=== PATIENT | female | born 1935 | race Caucasian/White ===

== ENCOUNTER 2023-10-15 18:28 | Emergency (ER) | payer MEDICARE, OTHER, SELFPAY ==
[2023-10-15 18:29] VITALS: BP 159/68
--- NOTE | 2023-10-15 21:10 | ED.GENMED ---
History of Present Illness
<Yulia Garcia PA-C - Last Filed: 10/16/23 00:23>
General
Chief Complaint: Musculo-Skeletal Complaint
Source: patient and family (patients daughter)
Exam Limitations: none
Time Seen by Provider: 10/15/23 20:34
Nursing documentation reviewed up to this point in time: agreed with
Travel History
Have you had any contact with someone who has COVID-19?: No
Do you have any symptoms of coronavirus? Fever > 100 degrees, chills, cough, shortness of breath, sore throat, loss of taste or smell, muscle aches, or headache?: No
History of Present Illness
History of Present Illness:
Patient is an 88-year-old female with history of hypertension, hyperlipidemia, GERD presenting for evaluation after sustaining a fall earlier today around 4 PM. She states that she was walking to her mailbox in her living community and seemed to
slip and fell backwards landing on her bottom and then striking the back of her head on the cement. The fall was unwitnessed but patient reports she did not lose consciousness. She was able to crawl back home. She denies any nausea, vomiting,
headache, visual changes, confusion. Her main complaint at this moment is pain in her right wrist. She also endorses mild pain in her neck she is not sure if she landed on her wrist when she fell.
Patient takes a baby aspirin every day. No other anticoagulation
Phy Exam
<Yulia Garcia PA-C - Last Filed: 10/16/23 00:23>
Physical Exam
Physical Exam:
General: Well appearing and non-toxic, vital signs reviewed - patient afebrile
HEENT: Small contusion posterior scalp with no lacerations or active bleeding, pupils equal round reactive light bilaterally, extraocular muscles intact, no tenderness around orbits, no tenderness to nasal bridge, protecting airway, no blood in
posterior pharynx
Neck: appears supple, mild C-spine tenderness, no midline spinal tenderness
CV: No evidence of cyanosis
Resp: No evidence of respiratory distress, lungs clear, no accessory muscle use
Abd: Soft and nontender, non-distended
Extremities: Tenderness to right wrist significant edema and bruising; right upper extremity neurovascularly intact, no tenderness over anatomical snuffbox, limited range of motion due to pain
Neuro: alert and oriented, speech normal, no focal motor deficits, no focal neurologic deficits
Psych: Normal affect
Skin: Intact, no rashes
Course
<Yulia Garcia PA-C - Last Filed: 10/16/23 00:23>
Orders/Labs/Results
Orders:
Orders
10/15/23 21:21
Acetaminophen [Tylenol] 650 mg PO NOW STA
Wrist, Right 3 Views [CR Wrist - Right Min 3 Views] Urgent
Comment:
Reason For Exam: fall, pain/swelling right wrist
10/15/23 21:23
CT Cervical Spine W/o Iv Contr Urgent
Comment:
Reason For Exam: fall
CT Head W/o Iv Contrast Urgent
Comment:
Reason For Exam: fall, impact to posterior scalp
Cardiac Monitoring- Treatment ONCE
10/15/23 23:34
Splints/Slings/Crut- Treatment ONCE
Location: Right
Type of Splint: Volar
10/15/23 23:40
Sling Right-Treatment ONCE
Vital Signs
Initial and Last Documented VS:
Initial Vital Signs
Temp Pulse Resp BP Pulse Ox
97.8 F 68 18 159/68 100
10/15/23 18:29 10/15/23 18:29 10/15/23 18:29 10/15/23 18:29 10/15/23 18:29
Last Documented Vital Signs
Temp Pulse Resp BP Pulse Ox
97.8 F 68 18 159/68 100
10/15/23 18:29 10/15/23 18:29 10/15/23 18:29 10/15/23 18:29 10/15/23 18:29
<Stanley Nieto DO - Last Filed: 10/15/23 23:42>
Orders/Labs/Results
Orders:
Orders
10/15/23 21:21
Acetaminophen [Tylenol] 650 mg PO NOW STA
Wrist, Right 3 Views [CR Wrist - Right Min 3 Views] Urgent
Comment:
Reason For Exam: fall, pain/swelling right wrist
10/15/23 21:23
CT Cervical Spine W/o Iv Contr Urgent
Comment:
Reason For Exam: fall
CT Head W/o Iv Contrast Urgent
Comment:
Reason For Exam: fall, impact to posterior scalp
Cardiac Monitoring- Treatment ONCE
10/15/23 23:34
Splints/Slings/Crut- Treatment ONCE
Location: Right
Type of Splint: Volar
10/15/23 23:40
Sling Right-Treatment ONCE
Vital Signs
Initial and Last Documented VS:
Initial Vital Signs
Temp Pulse Resp BP Pulse Ox
97.8 F 68 18 159/68 100
10/15/23 18:29 10/15/23 18:29 10/15/23 18:29 10/15/23 18:29 10/15/23 18:29
Last Documented Vital Signs
Temp Pulse Resp BP Pulse Ox
97.8 F 68 18 159/68 100
10/15/23 18:29 10/15/23 18:29 10/15/23 18:29 10/15/23 18:29 10/15/23 18:29
<Yulia Garcia PA-C - Last Filed: 10/16/23 00:23>
MDM/Problems Addressed
Differential Diagnosis Includes:
Scalp hematoma, head contusion, concussion, history of hemorrhage, wrist fracture
MDM/Problems Addressed:
Patient is an 88-year-old female presenting for evaluation after sustaining a fall. She landed on her buttock striking the back of her head on cement. Fall was unwitnessed, but no reported LOC. Patient with mild neck pain and significant pain and
swelling in right wrist. No vomiting, visual changes, back pain since fall. She takes baby aspirin daily otherwise no anticoagulation. She is hemodynamically stable upon arrival. Physical exam as documented above. There is a degree of hematoma
to the posterior scalp but no lacerations. She has mild cervical spine tenderness. No focal neurologic deficits on exam. She does have significant bruising and swelling of right wrist with limited range of motion due to pain. Based on mechanism
of unwitnessed fall�will get CT scan of head and cervical spine. Will x-ray right wrist. Will give Tylenol for pain. Will reassess
Patient with improvement in pain after Tylenol.
X-ray of right wrist shows acute impacted transverse fracture of distal right radius with mild dorsal displacement. Head CT and C-spine CT showed no evidence of intracranial bleeding or acute fracture-only degenerative changes noted.
She has remained stable in the emergency department. Will place patient in volar splint/sling and discharge. She will follow-up with orthopedics outpatient�will call in morning for appointment. Return precautions discussed. Supportive care with
Tylenol, ice, elevation, instruction leave sling in place until seen by orthopedics. Patient and patient's daughter comfortable this plan. All questions answered.
Chronic conditions affecting care:
HTN, HLD
Acute Exacerbation and/or Progression of Chronic Illness:
Distal radius fracture, head contusion
<Yulia Garcia PA-C - Last Filed: 10/16/23 00:23>
*Radiology
Radiology exam reviewed: preliminary read by ED provider and radiology read reviewed
*Pulse Oximetry
Patient hypoxic: no
*Electric Sign Wirer Interpretation
Rate: Electric Sign Wirer- N/A
*Critical Care Note
Total Time (30-74mins, 75-104mins- exclusive of procedures): Not Applicable
ED Attending Note
<Yulia Garcia PA-C - Last Filed: 10/16/23 00:23>
-
Portions of this chart may have been created with voice recognition software.� Occasional wrong word or��sound alike� substitutions may have occurred due to the inherent limitations of voice recognition software.
<Stanley Nieto DO - Last Filed: 10/15/23 23:42>
ED Attending Note
Patient seen and examined by attending physician: Yes
I performed the substantive portion of visit, reviewed & personally made and approve the management plan that is documented in note by myself or KALPESH.: Yes
ED Attending Note:
I agree with Lucrecia's note
Patient suffered a fall earlier today. She did strike the back of her head but no loss of consciousness. She is complaining of right wrist pain.
Vital signs acceptable
Small contusion posterior scalp
Neuro: Nonfocal
Right extremity: Swelling of the right wrist with some ecchymosis. Neurovascularly intact
CT head and neck showed chronic changes but nothing acute
Right wrist x-ray shows distal radius fracture. Immobilized with a splint, Ortho follow-up
Discharge Plan
Departure
Patient Disposition: Home (Routine Discharge)
Date of Disposition: 10/15/23
Time of Disposition: 23:43
Patient with high blood pressure during this ER visit?: Yes
Condition: Good
Discharge Problem:
Distal radius fracture, right, Contusion of head
Instructions: Radius Fracture (DC), How to Use a Shoulder Sling, Splint Care, Minor Head Injury, Adult ED, BLOOD PRESSURE
Referrals:
Sherie Jj DO [Family Provider] -
Celestino Ernst MD [Active] - Next open appointment
Activity Restrictions/Additional Instructions:
-Return to the emergency department with any severe headache, persistent dizziness, altered mental status, intractable vomiting, chest pain, shortness of breath, severe pain, worsening of current symptoms, or any other concerns.
-Keep your splint on until you are seen by orthopedics. Please return to the emergency department for any numbness/ tingling of right fingers, or any severe pain in right arm.
-Follow-up with orthopedics tomorrow for further evaluation/treatment of right wrist fracture.
-You can take Tylenol as needed for pain. Try to keep arm elevated and apply ice frequently.
Interventions
Interventions:
*Risk Screen - Suicide Last Done: 10/15/23 21:35
*General Assessment Last Done: 10/15/23 21:33
*Neglect/Abuse Screening Last Done: 10/15/23 21:35
ED- Fall Risk Assessment Last Done: 10/15/23 21:36
*ED COVID-19 Vaccine History Last Done: 10/15/23 21:33
*Nursing Disposition Last Done: 10/16/23 00:18
ED-Musculoskeletal Assessment Last Done: 10/15/23 21:35
[2023-10-15] MEDS: TYLENOL 650 MG PO (21:30)
== END 2023-10-16 00:19 | disposition home or self-care (01) ==
LOC: EMR 18:28
PROVIDERS: EMERGENCY PHYSICIAN Emergency Medicine; FAMILY PHYSICIAN Family Medicine
DX: S52.591A Other fractures of lower end of right radius, initial encounter for closed fracture (principal); S00.03XA Contusion of scalp, initial encounter; W01.0XXD Fall on same level from slipping, tripping and stumbling without subsequent striking against object, subsequent encounter; I10 Essential (primary) hypertension; E78.5 Hyperlipidemia, unspecified; K21.9 Gastro-esophageal reflux disease without esophagitis
CPT/HCPCS: 99284; 29125; 70450; 72125; 73110

== ENCOUNTER → 2023-10-24 13:06 | Outpatient (REF) | payer MEDICARE, OTHER, SELFPAY ==
[2023-10-24 16:03] LABS: ALT (SGPT) 29 U/L (0-35); AST (SGOT) 50 U/L (14-36); Alkaline Phosphatase 81 U/L (38-126); Blood Urea Nitrogen 12 mg/dl (7-17); Calcium 9.5 mg/dl (8.4-10.2); Carbon Dioxide 28 mmol/L (22-30); Chloride 94 mmol/L (98-107); Glucose 93 mg/dl (70-99); Potassium 4.7 mmol/L (3.5-5.1); Sodium 131 mmol/L (135-145); Total Bilirubin 0.5 mg/dl (0.2-1.3); eGFR > 60.00
[2023-10-24 16:19] LABS: Vitamin D, 25-OH*** 46.8 ng/mL (30-80)
== END ==
LOC: HWLAB 13:06
PROVIDERS: ATTENDING PHYSICIAN Internal Medicine; FAMILY PHYSICIAN Family Medicine
DX: M81.0 Age-related osteoporosis without current pathological fracture (principal)
CPT/HCPCS: 36415; 80053; 82306

== ENCOUNTER → 2023-12-02 09:59 | Outpatient (REF) | payer MEDICARE, OTHER, SELFPAY ==
[2023-12-02 12:21] LABS: ALT (SGPT) 20 U/L (0-35); AST (SGOT) 34 U/L (14-36); Albumin 4.1 g/dl (3.5-5.0); Alkaline Phosphatase 96 U/L (38-126); Direct Bilirubin 0.1 mg/dl (0.0-0.4); Total Bilirubin 0.4 mg/dl (0.2-1.3)
== END ==
LOC: HWLAB 09:59
PROVIDERS: ATTENDING PHYSICIAN Internal Medicine Gastroenterology; FAMILY PHYSICIAN Family Medicine
DX: R74.01 Elevation of levels of liver transaminase levels (principal)
CPT/HCPCS: 36415; 80076

== ENCOUNTER → 2024-01-19 09:10 | Outpatient (REF) | payer MEDICARE, OTHER, SELFPAY ==
[2024-01-19 13:52] LABS: ALT (SGPT) 29 U/L (0-35); AST (SGOT) 44 U/L (14-36); Albumin 3.9 g/dl (3.5-5.0); Alkaline Phosphatase 76 U/L (38-126); Blood Urea Nitrogen 15 mg/dl (7-17); Calcium 9.2 mg/dl (8.4-10.2); Carbon Dioxide 28 mmol/L (22-30); Chloride 98 mmol/L (98-107); Glucose 82 mg/dl (70-99); HDL Cholesterol 59 mg/dl; LDL Cholesterol, Calculated 88 mg/dl; Potassium 4.4 mmol/L (3.5-5.1); Sodium 131 mmol/L (135-145); Total Bilirubin 0.4 mg/dl (0.2-1.3); Total Cholesterol 165 mg/dl (50-199); Total Protein 6.9 g/dl (6.3-8.2); Triglyceride 94 mg/dl (10-149); Very Low Density Lipoprotein 18 mg/dl (0-30); eGFR > 60.00
== END ==
LOC: HWLAB 09:10
PROVIDERS: ATTENDING PHYSICIAN Internal Medicine Gastroenterology; FAMILY PHYSICIAN Family Medicine
DX: E78.00 Pure hypercholesterolemia, unspecified (principal); Z23 Encounter for immunization; F41.8 Other specified anxiety disorders; I25.10 Atherosclerotic heart disease of native coronary artery without angina pectoris; R14.0 Abdominal distension (gaseous)
CPT/HCPCS: 36415; 74022; 80053; 80061

== ENCOUNTER → 2024-02-10 13:05 | Outpatient (REF) | payer MEDICARE, OTHER, SELFPAY ==
[2024-02-10 15:49] LABS: Sodium 135 mmol/L (135-145)
== END ==
LOC: HWLAB 13:05
PROVIDERS: ATTENDING PHYSICIAN Family Medicine
DX: E87.1 Hypo-osmolality and hyponatremia (principal)
CPT/HCPCS: 36415; 84295

== ENCOUNTER → 2024-11-22 06:16 | Outpatient (REF) | payer MEDICARE, OTHER, SELFPAY ==
[2024-11-22 10:09] LABS: ALT (SGPT) 18 U/L (0-35); AST (SGOT) 33 U/L (14-36); Albumin 3.9 g/dl (3.5-5.0); Alkaline Phosphatase 80 U/L (38-126); Blood Urea Nitrogen 13 mg/dl (7-17); Calcium 9.6 mg/dl (8.4-10.2); Carbon Dioxide 30 mmol/L (22-30); Chloride 94 mmol/L (98-107); Glucose 89 mg/dl (70-99); Potassium 4.7 mmol/L (3.5-5.1); Sodium 131 mmol/L (135-145); Total Bilirubin 0.5 mg/dl (0.2-1.3); Total Protein 6.9 g/dl (6.3-8.2); eGFR > 60.00
[2024-11-22 10:41] LABS: Vitamin D, 25-OH*** 42.7 ng/mL (30-80)
== END ==
LOC: HWLAB 06:16
PROVIDERS: ATTENDING PHYSICIAN Internal Medicine; FAMILY PHYSICIAN Family Medicine; REFERRING PHYSICIAN Internal Medicine Cardiovascular Disease
DX: M81.0 Age-related osteoporosis without current pathological fracture (principal)
CPT/HCPCS: 36415; 80053; 82306

== ENCOUNTER 2024-12-11 14:45 | Emergency (ER) | payer MEDICARE, OTHER, SELFPAY ==
[2024-12-11 14:47] VITALS: BP 128/80
[2024-12-11 18:00] VITALS: BP 115/64
--- NOTE | 2024-12-11 18:27 | ED.GENMED ---
History of Present Illness
General
Chief Complaint: Extremity Pain (non-traumatic)
Source: patient
Exam Limitations: none
Time Seen by Provider: 12/11/24 15:28
Nursing documentation reviewed up to this point in time: agreed with
History of Present Illness
History of Present Illness:
89-year-old female past medical history of hypertension hyperlipidemia, GERD, anxiety depression presenting to the emergency department today with concerns of left leg tingling mainly starting on the lateral foot rating to the left calf. Ongoing
for the last few days. Worse with ambulating
Review of Systems
Review of Systems
Allergies reviewed?: Yes
All Other Systems: ROS reviewed and negative except as documented in HPI and ROS
Phy Exam
Physical Exam
Physical Exam:
GENERAL: Alert , in no apparent distress
EYE: pupils equal and reactive
NECK: Supple, no significant adenopathy.
ENT: o/p clr, mmm.
CARDIAC: Regular rate and rhythm .
LUNGS: Clear breath sounds bilaterally, no acute respiratory distress, no wheezes/rales/rhonchi
ABDOMEN: Soft, without focal tenderness, no r/g, no cvat
NEUROLOGICAL: Alert and oriented, no focal neuro deficits
SKIN: Warm and dry, skin intact.
MUSCULOSKELETAL: No edema, well perfused.
PSYCH: Normal and appropriate interaction.
Normal left lower extremity normal distal pulses of dorsalis pedis and posterior tibialis normal skin tone normal cap refill. Good range of motion of the hip knee and ankle
Course
Orders/Labs/Results
Orders:
Orders
12/11/24 16:22
Venous Doppler Lwr Ext Left [US Periph Venous LOWER Ext LT] Urgent
Comment:
Reason For Exam: leg swelling
Vital Signs
Initial and Last Documented VS:
Initial Vital Signs
Temp Pulse Resp BP Pulse Ox
98.4 F 77 18 128/80 98
12/11/24 14:47 12/11/24 14:47 12/11/24 14:47 12/11/24 14:47 12/11/24 14:47
Last Documented Vital Signs
Temp Pulse Resp BP Pulse Ox
98.4 F 77 18 128/80 98
12/11/24 14:47 12/11/24 14:47 12/11/24 14:47 12/11/24 14:47 12/11/24 14:47
MDM/Problems Addressed
MDM/Problems Addressed:
89-year-old female presenting to the emergency department today with concerns of tingling to the left leg also sometimes shooting up into the calf mainly with weightbearing. No current symptoms during my assessment. Vital signs normal here normal
vascular examination neuro vastly intact on my exam good range of motion no redness or warmth no signs of skin changes. Ultrasound without evidence of venous issue. Clinic no arterial concerns could be neuropathic symptoms advised for close
outpatient follow-up. Return precautions given.
*Critical Care Note
Total Time (30-74mins, 75-104mins- exclusive of procedures): Not Applicable
ED Attending Note
-
Portions of this chart may have been created with voice recognition software.� Occasional wrong word or��sound alike� substitutions may have occurred due to the inherent limitations of voice recognition software.
Discharge Plan
Departure
Patient Disposition: Home (Routine Discharge)
Date of Disposition: 12/11/24
Time of Disposition: 18:53
Patient with high blood pressure during this ER visit?: No
Condition: Good
Covid-19: Not Applicable
Discharge Problem:
Left leg pain
Instructions: Peripheral neuropathy
Referrals:
Franklin Caicedo MD [Active] - Follow up in 5-7 days
Sherie Jj DO [Family Provider] -
Activity Restrictions/Additional Instructions:
You came to the emergency department today with concerns of symptoms to your left leg. He had a normal ultrasound. Please follow closely for ongoing symptoms as an outpatient. Return for any worsening, new or concerning symptoms.
Interventions
Interventions:
*Risk Screen - Suicide Last Done: 12/11/24 14:47
*General Assessment Last Done: 12/11/24 14:47
*Neglect/Abuse Screening Last Done: 12/11/24 14:47
*ED- Fall Risk Assessment Last Done: 12/11/24 14:47
*ED COVID-19 Vaccine History Last Done: 12/11/24 14:47
Discharge Date and Time
Print Language: KOREAN
== END 2024-12-11 19:30 | disposition home or self-care (01) ==
LOC: EMR 14:45
PROVIDERS: EMERGENCY PHYSICIAN Emergency Medicine; FAMILY PHYSICIAN Family Medicine
DX: M79.605 Pain in left leg (principal); I10 Essential (primary) hypertension; E78.00 Pure hypercholesterolemia, unspecified; K21.9 Gastro-esophageal reflux disease without esophagitis; F41.8 Other specified anxiety disorders
CPT/HCPCS: 99284; 93971